=== PATIENT | male | born 1970 | race Caucasian/White ===

== ENCOUNTER 2021-12-02 16:57 | Emergency (ER) | payer MEDICAID ==
[~2021-12-02] VITALS: Ht 161.3 cm; Wt 86.2 kg
[2021-12-02 17:21] VITALS: BP 143/98
[2021-12-02] MEDS ORDERED: TETRACAINE HCL/PF 0.5% OPTH 4 ML BTL OP ONE (18:00)
[2021-12-02] MEDS ORDERED: FLUORESCEIN OPTH STRIP 1 MG OP ONE (18:00)
--- NOTE | 2021-12-02 18:03 | NUR ---
meds pulled for md parker at bedside
--- NOTE | 2021-12-02 18:06 | NUR ---
51 y/o male, pt states he had trash fall in his eye on thursday, 3 days ago. bilateral eye discomfort, right eye has pain, no changes in vision, no discharge, bleeding, scelera white. left eye scelera reddened and blurry vision, no discharge or bleeding. pmh: dm2 nka med: denies
[2021-12-02] MEDS ORDERED: NAPR-54 PO (18:45)
[2021-12-02] MEDS ORDERED: ERYT5OIN51 OP (18:45)
[2021-12-02 18:57] VITALS: BP 136/85
--- NOTE | 2021-12-02 18:57 | NUR ---
Patient discharged with v/s stable. Written and verbal after care instructions given FOR [facility]NE[facility]AS[facility] and explained. Patient alert, oriented and verbalized understanding of instructions. Ambulatory with steady gait. All questions addressed prior to discharge. ID band removed. Patient advised to follow up with PMD. Rx of ERYTHROMYCIN AND NAPROXEN given. Patient educated on indication of medication including possible reaction and side effects. Opportunity to ask questions provided and answered.
== END 2021-12-02 18:57 | disposition home or self-care (01) ==
LOC: MED 16:57
DX: S05.02XA Injury of conjunctiva and corneal abrasion without foreign body, left eye, initial encounter (principal); E11.9 Type 2 diabetes mellitus without complications; X58.XXXA Exposure to other specified factors, initial encounter; Y93.89 Activity, other specified; Y92.89 Other specified places as the place of occurrence of the external cause; Y99.8 Other external cause status
CPT/HCPCS: 99283

== ENCOUNTER 2023-11-02 14:00 | Emergency (ER) | payer MEDICAID ==
[~2023-11-02] VITALS: Ht 160 cm; Wt 72.6 kg
[~2023-11-02 14:00] MED LIST: ERYT5OIN51 OP; NAPR-54 PO
[2023-11-02 14:05] VITALS: BP 176/110; PULSE 88; RESP 18; TEMP 98.2; O2SAT 98
[2023-11-02] MEDS ORDERED: ACETAMINOPHEN EXTRA STRENGTH 500 MG TAB PO ONE (15:05)
[2023-11-02] MEDS ORDERED: NAPR-1704 PO (15:48)
[2023-11-02 15:53] VITALS: BP 145/99; PULSE 88; RESP 18; TEMP 98.2; O2SAT 98
== END 2023-11-02 15:53 | disposition home or self-care (01) ==
LOC: MED 14:00
DX: S16.1XXA Strain of muscle, fascia and tendon at neck level, initial encounter (principal); S09.90XA Unspecified injury of head, initial encounter; X58.XXXA Exposure to other specified factors, initial encounter; Y93.89 Activity, other specified; Y92.89 Other specified places as the place of occurrence of the external cause; Y99.8 Other external cause status
CPT/HCPCS: 70450; 99284

== ENCOUNTER 2024-04-06 17:30 | Emergency (ER) | payer MEDICAID, OTHER ==
[~2024-04-06] VITALS: Ht 160 cm; Wt 63.5 kg
[~2024-04-06 17:30] MED LIST changes: +NAPR-1704 PO; +NAPR-337 PO; -NAPR-54 PO
[2024-04-06 17:41] VITALS: BP 142/61; PULSE 73; RESP 18; TEMP 97.8; O2SAT 98
[2024-04-06] MEDS: NACL 0.9% 2,000 ML IV ONE (18:11)
[2024-04-06 18:38] LABS: BASOPHILS % (AUTO) 0.2 % (0.0-2.0); EOSINOPHILS # (AUTO) 0.1 K/uL (0-0.4); EOSINOPHILS % (AUTO) 1.5 % (0.0-4.0); HEMATOCRIT 41.7 % (36-52); HEMOGLOBIN 14.5 g/dL (12.0-18.0); LYMPHOCYTES # (AUTO) 2.1 K/uL (2.0-11.5); LYMPHOCYTES % (AUTO) 31.5 % (20.5-51.1); MEAN CORPUSCULAR HEMOGLOBIN 31 pg (27-31); MEAN CORPUSCULAR HGB CONC 35 g/dL (33-37); MEAN CORPUSCULAR VOLUME 89.9 fL (80-94); MONOCYTES # (AUTO) 0.4 K/uL (0.8-1.0); MONOCYTES % (AUTO) 6.8 % (1.7-9.3); NEUTROPHILS # (AUTO) 3.9 K/uL (1.8-7.7); PLATELET COUNT (AUTO) 243 K/uL (140-450); RED BLOOD CELL COUNT(AUTO) 4.64 MIL/uL (4.20-6.10); RED CELL DISTRIBUTION WIDTH 12.8 % (11.6-13.7); WHITE BLOOD COUNT (AUTO) 6.5 K/uL (4.8-10.8)
[2024-04-06 18:55] LABS: APPEARANCE,URINE CLEAR (CLEAR); BILIRUBIN,URINE NEGATIVE (NEGATIVE); BLOOD, URINE NEGATIVE (NEGATIVE); COLOR,URINE YELLOW (YELLOW); LEUKOCYTE ESTERASE ,URINE NEGATIVE (NEGATIVE); NITRITE, URINE NEGATIVE (NEGATIVE); PROTEIN,URINE NEGATIVE (NEGATIVE); UGLUCOSE 3+ (NEGATIVE); UROBILINOGEN,URINE 0.2 EU/dL (0.2 - 1)
[2024-04-06] MEDS: KETOROLAC 30 MG/ML VIAL IVP ONE (19:00)
[2024-04-06 19:17] LABS: ANION GAP 11.5 (8-16); CALCIUM 8.5 mg/dL (8.5-10.1); CARBON DIOXIDE 28.5 mmol/L (21-32); CREATININE 1.3 mg/dL (0.6-1.3)
[2024-04-06 19:38] VITALS: BP 128/75; PULSE 78; RESP 14; O2SAT 96
[2024-04-06] MEDS: INSULIN REGULAR, HUMAN 100 UNIT/ML VIAL SUBQ ONE (21:04)
== END 2024-04-06 21:12 | disposition home or self-care (01) ==
LOC: MED 17:30
DX: E11.65 Type 2 diabetes mellitus with hyperglycemia (principal); Z79.4 Long term (current) use of insulin; Z79.899 Other long term (current) drug therapy
CPT/HCPCS: 36415; 80048; 81003; 85025; 96361; 96372; 96374; 99284; J1815; J1885; J7030

== ENCOUNTER 2024-07-04 15:28 | Emergency (ER) | payer OTHER ==
[~2024-07-04] VITALS: Ht 160 cm; Wt 74.8 kg
[2024-07-04 15:33] VITALS: BP 152/92; PULSE 78; RESP 16; TEMP 98.6; O2SAT 99
[2024-07-04 18:22] LABS: BASOPHILS % (AUTO) 0.4 % (0.0-2.0); EOSINOPHILS # (AUTO) 0.3 K/uL (0-0.4); EOSINOPHILS % (AUTO) 4.7 % (0.0-4.0); HEMOGLOBIN 14.8 g/dL (12.0-18.0); LYMPHOCYTES % (AUTO) 31.7 % (20.5-51.1); MEAN CORPUSCULAR HEMOGLOBIN 31 pg (27-31); MEAN CORPUSCULAR HGB CONC 34 g/dL (33-37); MEAN CORPUSCULAR VOLUME 90.5 fL (80-94); MONOCYTES # (AUTO) 0.9 K/uL (0.8-1.0); MONOCYTES % (AUTO) 13.8 % (1.7-9.3); NEUTROPHILS # (AUTO) 3.2 K/uL (1.8-7.7); NEUTROPHILS % (AUTO) 49.4 % (42.2-75.2); PLATELET COUNT (AUTO) 257 K/uL (140-450); RED BLOOD CELL COUNT(AUTO) 4.86 MIL/uL (4.20-6.10); RED CELL DISTRIBUTION WIDTH 13.1 % (11.6-13.7); WHITE BLOOD COUNT (AUTO) 6.4 K/uL (4.8-10.8)
[2024-07-04 18:30] LABS: ANION GAP 14.2 (8-16); CALCIUM 9.2 mg/dL (8.5-10.1); CARBON DIOXIDE 30.1 mmol/L (21-32); CREATININE 0.7 mg/dL (0.6-1.3); POTASSIUM 4.3 mmol/L (3.5-5.1)
[2024-07-04 18:36] LABS: ALANINE AMINOTRANSFERASE 34 U/L (12-78); ALBUMIN 3.9 g/dL (3.4-5.0); ALKALINE PHOSPHATASE 104 U/L (50-136); ASPARTATE AMINOTRANSFERASE 13 U/L (15-37); BILIRUBIN,DIRECT 0.1 mg/dL (0.0-0.3); LIPASE 43 U/L (16-77); TOTAL BILIRUBIN 0.4 mg/dL (0.0-1.0)
[2024-07-04] MEDS: IBUPROFEN 600 MG TAB PO ONE (19:55)
[2024-07-04 20:16] LABS: APPEARANCE,URINE CLEAR (CLEAR); BILIRUBIN,URINE NEGATIVE (NEGATIVE); BLOOD, URINE NEGATIVE (NEGATIVE); COLOR,URINE YELLOW (YELLOW); LEUKOCYTE ESTERASE ,URINE NEGATIVE (NEGATIVE); NITRITE, URINE NEGATIVE (NEGATIVE); PH,URINE 6.5 (5.0-9.0); PROTEIN,URINE NEGATIVE (NEGATIVE); UGLUCOSE 3+ (NEGATIVE); UROBILINOGEN,URINE 0.2 EU/dL (0.2 - 1)
[2024-07-04 20:55] LABS: FLU A ANTIGEN negative (NEGATIVE); FLU B ANTIGEN NEGATIVE (NEGATIVE)
[2024-07-04 21:00] VITALS: O2SAT 99
[2024-07-04] MEDS ORDERED: IBUP-2213 PO (21:08)
[2024-07-04] MEDS ORDERED: PROM118S5 PO (21:08)
== END 2024-07-04 21:11 | disposition home or self-care (01) ==
LOC: MED 15:28
DX: U07.1 COVID-19 (principal); E11.9 Type 2 diabetes mellitus without complications; Z79.899 Other long term (current) drug therapy
CPT/HCPCS: 36415; 80048; 80076; 81003; 83690; 84484; 85025; 93005; 99284